=== PATIENT | male | born 1945 | race Caucasian/White ===

== ENCOUNTER 2017-11-06 18:18 | Inpatient (IN) | payer MEDICARE ==
[~2017-11-06] VITALS: Ht 188 cm; Wt 100.4 kg
[~2017-11-06 18:18] MED LIST: CHOL400C PO; GARL1CAP3 PO; MULT-257 PO
[2017-11-06 19:03] LABS: BASOPHILS # (AUTO) 0.01 x10^3/uL (0-0.1); BASOPHILS % (AUTO) 0 % (0-1); EOSINOPHILS # (AUTO) 0.05 x10^3/uL (0-0.4); EOSINOPHILS % (AUTO) 1 % (1-7); LYMPHOCYTES # (AUTO) 1.19 x10^3/uL (1-3.4); LYMPHOCYTES % (AUTO) 31 % (22-44); MD NO; MEAN CORPUSCULAR HEMOGLOBIN 28.7 pg (27.5-34.5); MEAN CORPUSCULAR HGB CONC 33.6 g/dL (33.2-36.2); MEAN CORPUSCULAR VOLUME 85.3 fL (81-97); MEAN PLATELET VOLUME 7.7 fL (7.4-10.4); MONOCYTES # (AUTO) 0.55 x10^3/uL (0.2-0.8); MONOCYTES % (AUTO) 15 % (2-9); NEUTROPHILS # (AUTO) 1.99 x10^3/uL (1.8-6.8); NEUTROPHILS % (AUTO) 52 % (42-75); PLATELET COUNT 204 x10^3/uL (130-400); RED BLOOD COUNT 4.52 x10^6/uL (4.38-5.82); RED CELL DISTRIBUTION WIDTH 12.1 % (9.4-14.8)
[2017-11-06 19:15] LABS: ALANINE AMINOTRANSFERASE 50 U/L (12-78); ALBUMIN 3.4 g/dL (3.4-5.0); ANION GAP 7 mmol/L (5-15); CALCIUM 8.5 mg/dL (8.5-10.1); CHLORIDE 109 mmol/L (98-107); CREATININE 0.86 mg/dL (0.7-1.3)
[2017-11-06 19:19] LABS: ALKALINE PHOSPHATASE 101 U/L (45-117); BILIRUBIN,TOTAL 0.5 mg/dL (0.2-1.0); TROPONIN I < 0.015 ng/mL (0.000-0.045)
[2017-11-06 20:02] LABS: FREE T4 (FREE THYROXINE) 4.17 ng/dL (0.76-1.46)
[2017-11-06 20:05] LABS: THYROID STIMULATING HORMONE < 0.005 mIU/L (0.358-3.740)
[2017-11-06] MEDS ORDERED: PROPRANOLOL 40 MG TABLET PO ONE (21:00)
[2017-11-06] MEDS ORDERED: SODIUM CHLORIDE 0.9% 1,000 ML IV SCH (21:16)
[2017-11-06] MEDS: PROPYLTHIOURACIL 50 MG TABLET PO SCH (21:24)
[2017-11-06] MEDS ORDERED: ACETAMINOPHEN 325 MG TABLET PO PRN (21:30)
[2017-11-06] MEDS ORDERED: ONDANSETRON 2MG/ML, 2ML IVPush PRN (21:30)
[2017-11-06] MEDS ORDERED: ENOXAPARIN 40 MG/0.4 ML SQ SCH (21:30)
[2017-11-06] MEDS ORDERED: POLYETHYLENE GLYCOL 17 GM PACKET PO PRN (21:30)
[2017-11-06] MEDS ORDERED: hydrALAzine 20 MG/ML, 1ML IVPush PRN (21:30)
[2017-11-06] MEDS ORDERED: ZOLPIDEM 5MG TABLET PO PRN (21:30)
[2017-11-06 22:40] VITALS: BP 150/64
[2017-11-07 01:11] VITALS: BP 165/84
[2017-11-07 01:43] VITALS: BP 160/79
[2017-11-07 03:09] LABS: TROPONIN I < 0.015 ng/mL (0.000-0.045)
[2017-11-07] MEDS: PROPYLTHIOURACIL 50 MG TABLET PO SCH ×4 (03:16→15:00)
[2017-11-07 07:40] VITALS: BP 188/78
[2017-11-07] MEDS ORDERED: GARLIC PO SCH (09:00)
[2017-11-07] MEDS ORDERED: MULTIVITAMIN 1 TABLET PO SCH (09:00)
[2017-11-07] MEDS ORDERED: CHOLECALCIFEROL 400 UNITS TABLET PO SCH (09:00)
[2017-11-07 10:26] VITALS: BP 155/68
[2017-11-07] MEDS ORDERED: PROP20TA PO (11:29)
[2017-11-07] MEDS ORDERED: PROPRANOLOL 20 MG TABLET PO SCH (11:30)
[2017-11-07 13:31] VITALS: BP 167/77
[2017-11-07 14:00] VITALS: BP 163/80
== END 2017-11-07 17:00 | disposition home or self-care (01) | DRG 645 ==
LOC: ED 20:59 → EDIP 21:02 → SUATTDRO 21:14 → 5SO 22:14 → DCLOUNGE 11-07 16:53
PROVIDERS: ADMIT Hospitalist; ATTEND Hospitalist
DX: E21.0 Primary hyperparathyroidism (principal); E05.20 Thyrotoxicosis with toxic multinodular goiter without thyrotoxic crisis or storm; D64.9 Anemia, unspecified; I15.8 Other secondary hypertension; N40.0 Benign prostatic hyperplasia without lower urinary tract symptoms; F41.9 Anxiety disorder, unspecified; R63.4 Abnormal weight loss; Z90.49 Acquired absence of other specified parts of digestive tract; Z68.28 Body mass index [BMI] 28.0-28.9, adult
CPT/HCPCS: 36415; 70450; 71046; 76536; 80053; 84432; 84439; 84443; 84481; 84484; 85025; 86376; 86800; 93005; 93306; 99291; J1650; J0360; J7030

== ENCOUNTER → 2017-12-02 | Outpatient (CLI) | payer MEDICARE ==
[~2017-12-02] MED LIST changes: +PROP20TA PO
== END | disposition home or self-care (01) ==
LOC: RAD 08:28
PROVIDERS: ATTEND Physician Assistant
DX: I10 Essential (primary) hypertension (principal); E05.90 Thyrotoxicosis, unspecified without thyrotoxic crisis or storm; E04.9 Nontoxic goiter, unspecified; R93.8 Abnormal findings on diagnostic imaging of other specified body structures
CPT/HCPCS: 78013; A9516

== ENCOUNTER → 2017-12-29 | Outpatient (CLI) | payer MEDICARE ==
[2017-12-29 09:05] LABS: FREE T4 (FREE THYROXINE) 2.46 ng/dL (0.76-1.46)
[2017-12-29 09:07] LABS: THYROID STIMULATING HORMONE < 0.005 mIU/L (0.358-3.740)
== END | disposition home or self-care (01) ==
LOC: LAB 08:13
PROVIDERS: ATTEND Physician Assistant
DX: Z12.11 Encounter for screening for malignant neoplasm of colon (principal); Z13.220 Encounter for screening for lipoid disorders; Z12.5 Encounter for screening for malignant neoplasm of prostate; R53.83 Other fatigue; J30.9 Allergic rhinitis, unspecified; E05.00 Thyrotoxicosis with diffuse goiter without thyrotoxic crisis or storm; R42 Dizziness and giddiness; R06.02 Shortness of breath
CPT/HCPCS: 36415; 84439; 84443; 84481

== ENCOUNTER → 2018-05-05 | Outpatient (CLI) | payer MEDICARE | END | disposition home or self-care (01) | LOC: CFH 07:28 | PROVIDERS: ATTEND Internal Medicine | DX: Z13.220 Encounter for screening for lipoid disorders (principal); Z12.11 Encounter for screening for malignant neoplasm of colon; Z12.5 Encounter for screening for malignant neoplasm of prostate; K76.0 Fatty (change of) liver, not elsewhere classified; J30.9 Allergic rhinitis, unspecified; R06.02 Shortness of breath; E05.00 Thyrotoxicosis with diffuse goiter without thyrotoxic crisis or storm; I10 Essential (primary) hypertension; R79.9 Abnormal finding of blood chemistry, unspecified | CPT/HCPCS: 36415; 76700; 81256 ==